=== PATIENT | male | born 1975 | race Caucasian/White ===

== ENCOUNTER 2020-12-18 18:55 | Emergency (ER) | payer SELFPAY ==
--- NOTE | 2020-12-18 19:18 | XR_ITS ---
PROCEDURE: XR KNEE LT 3V CLINICAL INDICATION: cut knee with chainsaw COMPARISON: No exams were available for comparison FINDINGS: No fracture or dislocation. No lytic or blastic change. There is normal mineralization. The joint spaces are well-preserved. No significant degenerative/arthritic changes. No erosive changes evident. Other findings:Soft tissue defect is present in the infrapatellar region laceration. No obvious gas within the joint space. IMPRESSION: Soft tissue laceration in the infrapatellar region otherwise negative Dictated by: Adriano Krause MD 12/19/2020 05:39 Adriano Krause MD in [place] 12/19/2020 05:39
[2020-12-18 19:20] VITALS: BP 201/128; PULSE 109; RESP 19; TEMP 36.8; O2SAT 100; BMI 29.8
--- NOTE | 2020-12-18 19:25 | HMH.EDUTC ---
[facility] [place] Clinical Impression: Laceration Disposition: Home, Self-Care Condition on Discharge: Good Instructions: How to Care for a Laceration After Repair, Laceration Repair, DI for Laceration Repair -- Simple Additional Instructions: Suture/Staple instructions: You have required stitches or Bob today. Please read the following instructions so you know how to care for them: 1. Keep wound area dry for the first 24 hours. 2 May clean gently with mild soap and water, after 48 hours to prevent crusting over suture knots. 3. You may shower if your provider gives permission but do not take a bath until the skin is healed.. 4. Never leave a wet dressing or Band-Aid on your stitches as this allows bacteria to reach the area and may cause infection. Band-aids can cause the wound to sweat and not recommended to wear for long periods of time Watch for signs of infection: Increasing redness, tenderness or warmth around the suture site Unusual swelling around the site Appearance of pus around each suture or any red streaks Fever If you develop any of the above signs or symptoms of infection, Follow up with Family Physician immediately 5. Suture removal in _7-10___days 6. Return to [facility] or follow up with family doctor for removal. This can be done by any medical provider during regular hours on Sunday through Sunday, by appointment. Prescriptions: Amoxicillin/Potassium Clav [Augmentin 875-125 Tablet] 1 tab PO Q12H 7 Days #14 tab Transmission Status: Received by [employer] #[id number] Referrals: Liz Mcclure [Primary Care Provider] - As needed Forms: Work/School Release Time of Disposition: 20:40 Medical Decision Making - Masood Inquiry Pt receiving controlled substance: No Masood was queried for this patient: No Vital Signs: 12/18/20 19:20 12/18/20 20:45 Temperature 98.3 F 98.3 F Temperature Source Oral Pulse Rate 109 H Pulse Rate [Right Brachial] 109 H Respiratory Rate 19 19 Blood Pressure 00/00 L Blood Pressure [Right Arm] 201/128 H Blood Pressure Mean [Right Arm] 152 Blood Pressure Source [Right Arm] Automatic Cuff Blood Pressure Position [Right Arm] Sitting 02 Sat by Pulse Oximetry 100 Oxygen Delivery Method Room Air Orders (Tests/Meds): ORDERS Category Date Time Status XR knee LT 3V Stat Exams 12/18/20 19:18 Taken - Radiology Data #1 Image(s): Knee Image Reviewed: Yes I reviewed the patient's radiology image Preliminary Findings: No Fracture Seen Medical Decision Narrative: Patient reports has crutches at home [facility] [place] - General Stated complaint: [id number] left leg cut with chainsaw Time Seen by Provider: 12/18/20 19:25 Mode of Arrival: Ambulatory Source of Information: Patient Limitations: No Limitations Description of Symptoms (Recalled from Triage Doc. by RN): LACERATION TO LEFT KNEE WITH CHAINSAW WHILE CUTTING WOOD HEENT Symptoms (Recalled from RN notes): No Resp Symptoms (Recalled from RN notes): No Skin Symptoms (Recalled from RN notes): Yes MS Symptoms (Recalled from RN notes): No Functional Status (Recalled from RN notes): WNL - History of Present Illness Provider Complaint: Patient state that he was cutting some wood when the chain saw slipped and hit him in the left knee causing laceration to his left knee States that he immediatly applied pressure and looked at his knee and noticed he had laceration to his knee and was bleeding so family brought him in to have it checked Pt states that he is nervous and has history of HTN state that his blood pressure will probably be high - Related Data Previous Rx's Medication Instructions Recorded Amoxicillin/Potassium Clav 1 tab PO Q12H 7 Days #14 tab 12/18/20 [Augmentin 875-125 Tablet] Allergies Allergy/AdvReac Type Severity Reaction Status Date / Time No Known Allergies Allergy Verified 12/18/20 19:23 - Worker's Comp Is this a Worker's Comp case?: No [facility] History - He
--- NOTE | 2020-12-18 19:40 | PC.NURSE ---
TDAP GIVEN IN LEFT DELTOID AT THIS TIME. LOT #[id number] EXP 08/25/22
[2020-12-18 20:45] VITALS: BP 00/00; PULSE 109; RESP 19; TEMP 36.8; O2SAT 100
== END 2020-12-18 20:48 | disposition home or self-care (01) ==
PROVIDERS: Emergency Provider Nurse Practitioner; PCP Family Medicine
DX: S81.012A Laceration without foreign body, left knee, initial encounter (principal); W31.2XXA Contact with powered woodworking and forming machines, initial encounter; Y92.89 Other specified places as the place of occurrence of the external cause; I10 Essential (primary) hypertension; Z23 Encounter for immunization
CPT/HCPCS: 12002; 73562; 90471; 99202; G0463